=== PATIENT | female | born 1980 | race Caucasian/White ===

== ENCOUNTER → 2018-09-09 11:18 | Outpatient (CLI) | payer BC, SELFPAY ==
--- NOTE | 2018-09-09 11:30 | XR_ITS ---
XR ankle RT min 3V Ordering Physician: Zoe Pulido Patient Age: 38 years: Female HISTORY: ITS.REASON: RT ANKLE PAIN right ankle pain. TECHNIQUE: 3 views right ankle COMPARISON :. None FINDINGS Right ankle appears intact. The joint space well maintained. Normal relationships at the ankle mortise with bones well mineralized. Dome of talus appears intact. IMPRESSION: Right ankle intact. Negative.. No fracture
== END ==
PROVIDERS: PCP Nurse Practitioner; Visit Provider Nurse Practitioner
DX: M25.571 Pain in right ankle and joints of right foot (principal)
CPT/HCPCS: 73610

== ENCOUNTER 2021-10-31 08:48 | Emergency (ER) | payer BC, SELFPAY ==
[2021-10-31] VITALS (9 sets, daily range): BP systolic 120–140; BP diastolic 81–93; PULSE 87–99; RESP 12–23; TEMP 36.8; O2SAT 97–99; BMI 34.3
--- NOTE | 2021-10-31 09:02 | ECG_ITS ---
APPROVED REPORT Exam: Resting ECG HR:87 bpm ECG Measurements Heart Rate 87 AXES PA 150 P 50 QRSd 91 QRS -14 QT 356 T 48 QTc 401 Conclusion SINUS RHYTHM LOW QRS VOLTAGE IN PRECORDIAL LEADS [QRS DEFLECTION < 1.0 mV IN CHEST LEADS] BORDERLINE ECG UNCONFIRMED REPORT Electronically signed by : Abhijit Teixeira MD 10/31/2021 20:19:56
--- NOTE | 2021-10-31 09:07 | XR_ITS ---
FINAL REPORT CLINICAL HISTORY: productive cough x2 days FINDINGS: 2 views of the chest were obtained. The heart size is normal. The mediastinum is unremarkable. There is mild left base opacity which may represent atelectasis or pneumonia. There are no pleural effusions. There is no pneumothorax. There is no acute osseous abnormality. IMPRESSION: Mild left base opacity may represent atelectasis or pneumonia. Reviewed, Interpreted and Dictated by Haile Rockwell III, MD Transcribed by Nina Nguyễn Authenticated by Haile Rockwell III, MD on 10/31/2021 09:54:08 AM [facility]
--- NOTE | 2021-10-31 09:08 | HMH.EDGENADL ---
ED Disposition Clinical Impression: Pneumonia Qualifiers: Pneumonia type: due to unspecified organism Laterality: left Lung location: lower lobe of lung Qualified Code(s): J18.9 - Pneumonia, unspecified organism Disposition: Home, Self-Care Condition on Discharge: Good Instructions: DI for Pneumonia -- Adult Additional Instructions: Additional instructions for PNEUMONIA: Take antibiotics as prescribed. See your physician as soon as possible for further evaluation. Return immediately if you have an uncontrollable fever greater than 102 degrees, difficulty breathing or shortness of breath, persistent vomiting, or severe chest pain. Prescriptions: Cefdinir [Omnicef 300mg Capsule] 300 mg PO BID #20 cap Transmission Status: Pending to [facility] Azithromycin [Zithromax 250mg tab] 250 mg PO DAILY #4 tab Transmission Status: Pending to [facility] Referrals: Provider,Referral, [Primary Care Provider] - Forms: Work/School Release - Critical Care Critical Care Time: No Attestation: On 10/31/21, the high probability of a clinically significant, sudden or life threatening deterioration of the following system(s) required my full and direct attention, intervention and personal management. The time I documented below is in addition to time spent performing reported procedures but includes the following listed in this critical care notation. Medical Decision Making - Gee Inquiry Pt receiving controlled substance: No Vital Signs: 10/31/21 08:49 Temperature 98.2 F Temperature Source Oral Pulse Rate [Right Radial] 93 H Respiratory Rate 14 Blood Pressure [Right Arm] 132/84 Blood Pressure Mean [Right Arm] 100 Blood Pressure Source [Right Arm] Automatic Cuff Blood Pressure Position [Right Arm] Sitting 02 Sat by Pulse Oximetry 98 Oxygen Delivery Method Room Air - Lab Data Lab Results 10/31/21 09:00: Urine Color Yellow, Urine Appearance Clear, Urine pH 6.0, Ur Specific Accord <= 1.005, Urine Protein Negative, Urine Glucose (UA) Negative, Urine Ketones Negative, Urine Blood Negative, Urine Nitrate Positive, Urine Bilirubin Negative, Urine Urobilinogen 0.2, Ur Leukocyte Esterase Negative, Urine WBC Occasional, Ur Squamous Epith Cells 3-5, Urine Bacteria Trace 10/31/21 09:00: Urine HCG, Qual Negative 10/31/21 09:06: WBC 12.9 H, RBC 5.04, Hgb 15.7, Hct 44.8, MCV 88.9, MCH 31.2, MCHC 35.1, RDW 12.4, Plt Count 427 H, MPV 7.6, Neut % (Auto) 83.2 H, Lymph % (Auto) 11.3, Bryan % (Auto) 4.7, Eos % (Auto) 0.6, Baso % (Auto) 0.2, Neut # (Auto) 10.8 H, Lymph # (Auto) 1.5, Bryan # (Auto) 0.6, Eos # (Auto) 0.1, Baso # (Auto) 0.0 10/31/21 09:06: Sodium 136, Potassium 3.8, Chloride 106, Carbon Dioxide 24, Anion Gap 9.8, BUN 9, Creatinine 0.90, Estimated Creat Clear 117, Estimated GFR 69, Est GFR ( Amer) 83, Glucose 100, Calcium 9.1, Total Bilirubin 0.9, AST 27, ALT 24, Alkaline Phosphatase 91, Total Protein 7.9, Albumin 4.5, Globulin 3.4 H, Albumin/Globulin Ratio 1.3 Result diagrams: 10/31/21 09:06 10/31/21 09:06 Orders (Tests/Meds): ED MEDICATIONS Generic Name Dose Route Start Last Admin Trade Name Freq PRN Reason Stop Dose Admin Ceftriaxone Sodium 1 gm/ 50 mls @ 100 mls/hr 10/31/21 10:00 Sodium Chloride IV 11/14/21 09:59 Q24H JANIE Azithromycin 500 mg/ Sodium 250 mls @ 250 mls/hr 10/31/21 10:00 Chloride IV 11/14/21 09:59 Q24H JANIE Sodium Chloride 10 ml 10/31/21 09:06 Sodium Chloride 0.9% 10ml Flush Syringe IV 11/30/21 09:05 NEEDED PRN Maintain IV Site ORDERS Category Date Time Status Covid-19 Nasal PCR ([facility]) Routine Lab 10/31/21 09:16 Ordered Urine Culture Routine Micro 10/31/21 09:58 Ordered - Radiology Data #1 Image(s): Chest Image Reviewed: Yes I reviewed the patient's radiology image, Yes I have reviewed radiologist's interpretation Preliminary Findings: Abnormal (L basilar airsp dz) Procedure(s): XR chest 2V Accession Number
[2021-10-31 09:14] LABS: Microscopic, Urine URINE MICROSCOPIC (MICROSCOPIC)
[2021-10-31 09:24] LABS: Basophils % 0.2 % (0.1-2.0); Eosinophils # 0.1 K/mm3 (0.0-0.4); Eosinophils % 0.6 % (0.1-12.0); Hematocrit 44.8 % (37.0-47.0); Hemoglobin 15.7 g/dL (12.2-16.2); Lymphocytes # 1.5 K/mm3 (0.7-4.5); Lymphocytes % 11.3 % (10-50); Mean Corpuscular HGB Conc 35.1 g/dL (31.8-35.4); Mean Corpuscular Hemoglobin 31.2 pg (27.0-31.2); Mean Corpuscular Volume 88.9 fl (81-99); Mean Platelet Volume 7.6 fl (7.4-10.4); Monocytes # 0.6 K/mm3 (0.1-1.0); Monocytes % 4.7 % (1.7-9.3); Neutrophils # 10.8 K/mm3 (1.8-7.8); Neutrophils % 83.2 % (37.0-80.0); Platelet Count 427 K/mm3 (142-424); Red Blood Count 5.04 M/mm3 (4.20-5.40); Red Cell Distribution Width 12.4 % (11.5-17.5); White Blood Count 12.9 K/mm3 (4.8-10.8)
[2021-10-31 09:27] LABS: Appearance,Urine CLEAR (Clear); Bilirubin,Urine Negative (Negative); Blood, Urine Negative (Negative); Color,Urine YELLOW (Yellow); Glucose,Urine (UA) Negative (Negative); Ketones,Urine Negative (Negative); Leukocyte Esterase,Urine Negative (Negative); Nitrate,Urine POSITIVE (Negative); Protein,Urine Negative (Negative); Specific Gravity, Urine <= 1.005 (1.005-1.030); Urobilinogen,Urine 0.2 EU/dl (0.2)
[2021-10-31 09:28] LABS: Chloride 106 mmol/L (98-107); Potassium 3.8 mmoL/L (3.5-5.1); Sodium 136 mmol/L (136-145)
[2021-10-31 09:29] LABS: Urine Pregnancy, HCG Qual. Negative (Negative)
[2021-10-31 09:31] LABS: Alanine Aminotransferase 24 U/L (12-78); Albumin Level 4.5 g/dl (3.5-5.0); Albumin/Globulin Ratio 1.3 (1.1-1.8); Alkaline Phosphatase 91 U/L (38-126); Anion Gap 9.8 mEq/L (5-15); Aspartate Amino Transferase 27 U/L (14-36); Bilirubin,Total 0.9 mg/dl (0.2-1.3); Blood Urea Nitrogen 9 mg/dl (7-17); Calcium 9.1 mg/dl (8.4-10.2); Carbon Dioxide 24 mmol/L (22.0-30.0); Creatinine Clearance Estimated 117 mL/min (50-200); Estimated Glomerular Filt Rate 69 ml/min (>60); GFR (African American) 83 ML/MIN (>60); Globulin 3.4 g/dL (1.3-3.2); Glucose 100 mg/dl (74-100); Total Protein,Serum 7.9 g/dl (6.3-8.2)
[2021-10-31 09:38] LABS: Bacteria,Urine Trace /lpf; WBC,Urine Occasional #/hpf (0-3)
== END 2021-10-31 13:15 | disposition home or self-care (01) ==
PROVIDERS: Emergency Provider Emergency Medicine
DX: J18.9 Pneumonia, unspecified organism (principal); R42 Dizziness and giddiness
CPT/HCPCS: 71046; 80053; 81001; 81025; 85025; 87086; 93005; 96365; 96366; 99284; J0456; J0696